=== PATIENT | male | born 1970 | race Caucasian/White ===

== ENCOUNTER 2017-02-25 18:27 | Emergency (ER) | payer SELFPAY ==
[~2017-02-25] VITALS: Ht 182.9 cm; Wt 140.0 kg
[~2017-02-25 18:27] MED LIST: CIPR500T4 PO; FLAG500T PO; Z.0.NO CURRENT MEDS
[2017-02-25 18:29] VITALS: BP 137/92; PULSE 98; RESP 16; TEMP 99; O2SAT 96
[2017-02-25] MEDS ORDERED: ASPI81TA11 PO (18:34)
--- NOTE | 2017-02-25 18:41 | PD ---
HPI Chief Complaint: Laceration/Skin Injury Time Seen by Provider: 18:40 Travel History International Travel<30 days: No Contact w/Intl Traveler<30days: No Traveled to known affect area: No History of Present Illness HPI 46-year-old male presents to the ED for evaluation of laceration of the left draper. 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 He states that he wrapped it wound, but it has continued to bleed throughout the course of the day. Patient states he takes an aspirin daily, prophylactic due to CAD in his family. He also states that he drinks 5 or 6 mixed drinks daily. PFSH Past Medical History Hx Anticoagulant Therapy: Yes (BABY ASA DAILY) Diabetes: No Diminished Hearing: No Inguinal Hernia: Yes (UMBILICAL) Medical other: Yes (UMBILICAL HERNIA) Immunizations Current: Yes Past Surgical History Surgical History: No Previous Surgery Social History Alcohol Use: Yes (5 OUNCES DAILY) Tobacco Use: No (FORMER) Substance Use: No Allergies-Medications (Allergen,Severity, Reaction): Coded Allergies: No Known Allergies (Verified , 02/25/17) Reported Meds & Prescriptions Reported Meds & Active Scripts Active Reported Aspirin EC (Aspirin) 81 Mg Tabdr 81 Mg PO DAILY Review of Systems Except as stated in HPI: all other systems reviewed are Neg Physical Exam Narrative GENERAL: Well-nourished, well-developed white male in no acute distress. SKIN: Focused skin assessment warm/dry. There is a subcentimeter laceration on the anterior aspect of the left draper. Mild to moderate bleeding. HEAD: Normocephalic. EYES: No scleral icterus. No injection or drainage. NECK: Supple, trachea midline. No JVD or lymphadenopathy. CARDIOVASCULAR: Regular rate and rhythm without murmurs, gallops, or rubs. RESPIRATORY: Breath sounds equal bilaterally. No accessory muscle use. GASTROINTESTINAL: Abdomen soft, non-tender, nondistended. MUSCULOSKELETAL: No cyanosis, or edema. Patient retains full, active ROM of the bilateral lower extremities. BACK: Nontender without obvious deformity. No CVA tenderness. Data Data Last Documented VS Vital Signs Date Time Temp Pulse Resp B/P Pulse Ox O2 Delivery O2 Flow Rate FiO2 02/25/17 18:29 99.0 98 16 137/92 96 Orders Silver Nitrate Applicators (Silver Nitra (02/25/17 18:45) Tetanus/Diphtheria Tox Adult (Tetanus/Di (02/25/17 18:45) MDM Medical Decision Making Medical Screen Exam Complete: Yes Emergency Medical Condition: Yes Differential Diagnosis laceration versus abrasion versus need for tetanus immunization versus hemorrhage versus other Narrative Course 46-year-old male presents to the ED for evaluation of laceration of the left draper. 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 He states that he wrapped it wound, but it has continued to bleed throughout the course of the day. Vitals reviewed. Physical exam reveals a subcentimeter laceration of the anterior aspect of the left draper with mild to moderate bleeding. Tetanus immunization was updated. Silver nitrate was used to cauterize the wound. A pressure dressing was applied. 5-10 minutes passed, on recheck there is no active bleeding. Pressure dressing was again applied. Patient was instructed to keep the leg elevated and pressure dressing in place. He is cautioned that if bleeding should return and is unable to be stopped by direct pressure he should come back to the ED. He indicated understanding of instructions and is agreeable to the care plan. Patient is stable and discharged home. Diagnosis Primary Impression: Laceration of left lower leg Qualified Code: S81.812A - Laceration of left lower leg, initial encounter Referrals: Primary Care Physician Patient Instructions: Acute Wound Care (ED), General Instructions Additional Instructions: Keep the wound clean, dry and covered. Monitor for signs of infection as discussed. Should bleeding recur apply pressure for 5 minutes without lifting the pressure. Reevaluate, return to the ED should bleeding continue. Follow-up with primary care provider. Return to the ED for any urgent or emergent medical condition. Disposition: 01 DISCHARGE HOME Condition: Stable Katarina Espino Feb 25, 2017 18:41
[2017-02-25] MEDS ORDERED: SILVER NITR/POTASSIUM NITRATE APPLICATORS TOPICAL ONE (18:45)
[2017-02-25] MEDS ORDERED: TETANUS/DIPHTHERIA TOXOID ADULT 0.5 ML VIAL IM ONE (18:45)
[2017-02-25] MEDS ORDERED: ADDE25CA PO (19:14)
== END 2017-02-25 20:07 | disposition home or self-care (01) ==
LOC: PHED 18:27
DX: S81.812A Laceration without foreign body, left lower leg, initial encounter (principal); W26.8XXA Contact with other sharp object(s), not elsewhere classified, initial encounter; Y93.89 Activity, other specified; Y92.9 Unspecified place or not applicable
CPT/HCPCS: 12001; 90471; 90714